=== PATIENT | female | born 1990 | race Caucasian/White ===

== ENCOUNTER → 2023-11-29 08:14 | Outpatient (REF) | payer OTHER, SELFPAY | LOC: HWRAD 08:14 | PROVIDERS: ATTENDING PHYSICIAN Chiropractor; FAMILY PHYSICIAN Family Medicine | DX: M54.2 Cervicalgia (principal); M54.6 Pain in thoracic spine | CPT/HCPCS: 72050; 72072 ==

== ENCOUNTER 2023-12-12 10:06 | Emergency (ER) | payer OTHER, SELFPAY ==
[2023-12-12 10:08] VITALS: BP 137/98
--- NOTE | 2023-12-12 10:24 | ED.GENMED ---
History of Present Illness
General
Chief Complaint: Visual Problem
Source: patient
Exam Limitations: none
Time Seen by Provider: 12/12/23 10:12
Travel History
Have you had any contact with someone who has COVID-19?: No
Do you have any symptoms of coronavirus? Fever > 100 degrees, chills, cough, shortness of breath, sore throat, loss of taste or smell, muscle aches, or headache?: No
History of Present Illness
History of Present Illness:
See MDM
If applicable-neuro sx onset
Onset of symptoms known: Yes
Date of onset of symptoms: 12/12/23
Past History
Past History
ED Past Medical History: GERD and Other (VSD)
ED Past Surgical History:
Social History
Tobacco: Former smoker
Alcohol: Occasional
Drug: None
Living: with family
Employment: Employed
Phy Exam
Physical Exam
Physical Exam:
See MDM
Scores
NIH Stroke Score
Level of Consciousness: 0 - Alert
LOC Questions: 0-Answers both correctly
LOC Commands: 0-Performs both correctly
Best Horizontal Gaze: 0-Normal
Visual Gatica: 1=Partial hemianopia
Facial Palsy: 0=Normal, symmetrical
Motor - Right Arm: 0=No drift 10 seconds
Motor - Left Arm: 0=No drift 10 seconds
Motor - Right Le-No drift 5 seconds
Motor - Left Le-No drift 5 seconds
Limb Ataxia: 0-Absent
Sensation: 0-Normal
Best Language: 0-No aphasia
Dysarthria: 0-Normal
Extinction and Inattention: 0-No abnormality
Total Score:: 1
Course
Orders/Labs/Results
Orders:
Orders
12/12/23 10:23
CT Head & Neck Angio W/wo IV Urgent
Comment:
Reason For Exam: bilateral left side visual loss
Test Result ONCE
12/12/23 10:26
Consult Neurology [NEUROLOGY CONSULT] Urgent
Consulting Provider: Jeromy Dawn
Was physician already notified: Yes
12/12/23 10:31
Electrocardiogram (*1) Urgent
Reason for Study: TIA/Stroke
EKG- Treatment ONCE
12/12/23 10:42
Prochlorperazine [Compazine] 10 mg IV NOW STA
12/12/23 10:45
Complete Blood Count/With Diff Urgent
Comprehensive Metabolic Panel Urgent
HCG, Serum Qualitative Screen Urgent
PTT Urgent
Prothrombin Time Urgent
12/12/23 10:45
12/12/23 10:45
Vital Signs
Initial and Last Documented VS:
Initial Vital Signs
Temp Pulse Resp BP Pulse Ox
99.0 F 79 16 137/98 98
12/12/23 10:08 12/12/23 10:08 12/12/23 10:08 12/12/23 10:08 12/12/23 10:08
Last Documented Vital Signs
Temp Pulse Resp BP Pulse Ox
99.0 F 83 16 122/81 99
12/12/23 10:08 12/12/23 11:40 12/12/23 11:40 12/12/23 11:40 12/12/23 11:40
MDM/Problems Addressed
Differential Diagnosis Includes:
HPI and MDM Narrative:
33-year-old female presenting with left-sided visual field loss. This occurred at approximately 9:45 AM when she was at work. Patient does have a history of ocular migraines but states this is different. Patient is starting to develop a posterior
headache. On arrival to the emergency department, patient states her symptoms are improving somewhat. She is currently being treated with a chiropractor for headaches but has not received any sort of cervical manipulation.
On arrival to the emergency department, patient does have mild bilateral left hemianopia. However, patient states the symptoms are improving
I immediately discussed the case with neurology. I am less concerned for stroke but more concern for ocular migraine or possibly MS. Regardless, will obtain CT angiogram head and neck. Neurology to see
Physical exam
General: Well appearing and non-toxic
HEENT: protecting airway. Mild bilateral visual field deficits. EOMI. Pupils equal reactive
Neck: No anterior neck tenderness. Supple
CV: No evidence of cyanosis
Resp: No accessory muscle use
Abd: Non-distended
Extremities: No deformities
Neuro: alert
Psych: Normal affect
Skin: Intact
Problems Addressed including Acute and Chronic Conditions affecting care:
1. Visual field loss
Acuity: acute
Prognosis: stable
Details: Will obtain CT angiogram. Neurology at bedside
Updates
10:35 AM neurology came down immediately and is at bedside
Blood work normal. CTA negative. Patient states all her symptoms has resolved. She feels comfortable going home. Neurology agrees. Patient will follow-up with PCP and neurology as an outpatient
Differential Diagnosis (but not limited to): CVA, migraine, brain mass, MS
Testing considered: Brain MRI
Drug therapy (if applicable): OTC meds, please see d/c instruction regarding Rx drugs
Amount and/or Complexity of Data Reviewed
Clinical info obtained from: Patient
External data reviewed: N/A
Labs I independently reviewed (but not limited to): CBC and chemistry negative
Radiology: The CT scan was personally and independently reviewed. In addition, official CT report reviewed.
Pulse Ox: not hypoxic
EKG independently reviewed: Sinus rhythm, normal axis, no STEMI
Canvas Repairer: Sinus rhythm
Critical Care: N/A
Risk of Complication:
Social Determinants of health: Good social support
Discussed with other providers: Neurologist
Escalation of Care includes Admit/Obs: After being observed in the Emergency Department, pt stable for discharge.
Occasional wrong word or 'sound a like' substitutions may have occurred due to the inherent limitations of voice recognition software. Read the chart carefully and recognize, using context, where substitutions have occurred.
*Critical Care Note
Total Time (30-74mins, 75-104mins- exclusive of procedures): Not Applicable
ED Attending Note
-
Portions of this chart may have been created with voice recognition software.� Occasional wrong word or��sound alike� substitutions may have occurred due to the inherent limitations of voice recognition software.
Discharge Plan
Departure
Patient Disposition: Home (Routine Discharge)
Date of Disposition: 12/12/23
Time of Disposition: 13:05
Patient with high blood pressure during this ER visit?: No
Discharge Problem:
Complicated migraine
Prescriptions:
No Action
PNV cmb#95-ferrous fumarate-FA [] 1 EACH tablet
1 ea PO DAILY
acetaminophen 325 MG tablet
650 mg PO Q4HPRN PRN (Reason: mild pain) 0RF
ibuprofen 600 MG tablet
600 mg PO Q6HPRN PRN (Reason: cramps) Qty: 60 0RF
simethicone [Gas Relief 80 (simethicone)] 80 MG tablet,chewable
80 mg PO TIDPRN PRN (Reason: flatulence) 0RF
Referrals:
Jeromy Dawn MD [Active] -
Cayla Smith MD [Family Provider] -
Activity Restrictions/Additional Instructions:
Please return for any worsening symptoms.
You may return at any time if you have further concerns.
Please keep your primary care appointment. Please make an appointment to see the neurologist.
Thank you for choosing [facility].
Interventions
Interventions:
*General Assessment Last Done: 12/12/23 10:50
*ED COVID-19 Vaccine History Last Done: 12/12/23 10:08
ED- Neurological Assessment Last Done: 12/12/23 10:50
ED-EENT Assessment Last Done: 12/12/23 12:44
Discharge Date and Time
Print Language: TRINIDADIAN
[2023-12-12 10:34] VITALS: BMI 34.9
--- NOTE | 2023-12-12 10:36 | CON.NEURO4 ---
Addendum entered and electronically signed by Jeromy Dawn MD 12/12/23 13:42:
Studies reviewed.
I have personally examined the patient. I reviewed and agree with the SURGICAL SUPPLY ASSISTANT's Note.
My addenda:
Awake, alert, interactive. No acute distress.
Speech intact.
Follows 2-step requests w/o difficulty. No tremor.
Extra-ocular movements grossly intact.
Facial movements full and symmetric. Hearing intact to normal conversational volume.
Normal UE movements bilaterally.
Neck: full ROM.
Chest: no dyspnea
Heart: no JVD
Ext: (-) Clubbing, (-) Cyanosis, (-) Edema
IMPRESSIONS/RECOMMENDATIONS:
Abrupt onset of Migraine with aura associated with visual change
Patient also suffers from generalized anxiety disorder which may also be producing her hand sensation change
Provide prochlorperazine for both head discomfort and nausea
Patient would likely benefit from routine dosing of amitriptyline 10 mg at bedtime as a preventative medication for migraine and episodic daily headache which she is currently experiencing. She declines this at this time
In the future, patient may benefit from the use of routine migraine rescue medication
D/W patient / nursing
Will continue to follow patient as needed.
Original Note:
Documented by User: Becky Servin NP 12/12/23 11:53
Consultation - Neurology 4
-
CONSULTING PHYSICIAN: Jeromy Dawn MD
REFERRING PHYSICIAN: ER/Dr. Acevedo
DICTATED BY: LUIS ALBERTO Cisse
DATE/TIME OF REQUEST: 12/12/23
DATE/TIME OF CONSULTATION: 12/12/23
Reason for Consultation: Vision loss
History of Present Illness:
This is a 33-year-old right-handed female who has presented to the hospital with report of abrupt loss of vision. Patient reports being in her usual state this morning when she went to work. Around 0945, she reports suddenly losing vision in
bilateral eyes on the left side. She was looking at someone's face and couldn't see the left half of it. On arrival to the ER she was noted to have a mild, rapidly improving left homonymous hemianopia, prompting Neurology evaluation. Currently,
patient reports her vision is almost back to normal but is still not quite right, she cannot describe this any further. She reports that once she arrived here she started to develop a pounding temporal headache and neck discomfort, in addition to
photophobia and nausea. She attributes the nausea to anxiety. She reports a history of migraine headaches starting in her 20's associated with photo/phonophobia, nausea, vomiting, and double vision. She has 2-3 migraines per year, typically in the
summer when it's hot outside. She has never had loss of vision with her migraines. She also endorses having 'tension headaches' associated with shoulder tension and a pounding sensation in her temples. She typically gets these headaches once a week,
but for the past 4 weeks reports that she has had a daily persistent headache. She has been taking Tylenol with minimal relief. She was evaluated at an urgent care who sent her for cervical and thoracic xrays and referred her to a chiropractor. She
has been seeing a chiropractor for two weeks and reports that it has helped some. She has not had any neck manipulation done. Additionally, she reports frequently seeing eye floaters and for the past several years she has experienced
numbness/tingling intermittently in bilateral hands and feet, neither associated with her headaches. She received prochlorperazine in the ER for nausea and headache and now reports feeling diffuse body numbness. She also reports feeling extremely
anxious. She denies any dizziness, speech/swallow difficulty, weakness, chest pain, palpitations, and shortness of breath.
Past Medical History: Migraine with aura, anxiety, GERD, VSD
Surgical History: x2, breast augmentation.
Family History: Unknown, father adopted. Both parents .
Social History: Former tobacco. Social alcohol. Denies illicit drug use.
Allergies: No known allergies.
Home Medications: See below.
Review of Symptoms:
Patient denies any fever, chest pain, shortness of breath, GI or symptoms.
�Per the HPI.�All systems are reviewed negative except above.
Physical Exam:
The patient is afebrile, abdomen is nondistended, breathing is unlabored, skin is warm and dry, no edema.
NIH Stroke Scale:
I performed the NIH stroke scale on the patient on 12/12/23 at 1045. The patient scored 0 points on the NIH stroke scale assessment, which were assigned as follows:
Neurologic Examination:
The patient is awake, alert and oriented x 3. Mild difficulty following two-step commands. There is no aphasia or dysarthria. On cranial nerve assessment, pupils are 5 mm bilateral, round and reactive to light and accommodation. No papilledema.
Visual gatica are full bilaterally. Extraocular movements are intact. Facial sensations are intact and bilaterally symmetrical, there is no facial asymmetry. Hearing is intact bilaterally to normal conversation volume. Tongue palate and uvula are
midline. Sternocleidomastoid strengths are full bilaterally. Motor strengths are 5/5 bilateral upper and lower extremities on medical research [place] scale. There is no drift or involuntary movement noted. Deep tendon reflexes are 2+ bilateral
upper and lower extremities and Babinski is absent bilaterally. Two beats on clonus on the R, 3 beats of clonus L. Sensations of touch, temperature and vibration are intact and bilaterally symmetrical. There was no extinction noted on double
simultaneous stimulation. Coordination is intact by finger to nose bilaterally.
Lab Results: See below.
Neuro Imaging:
1. CTA Head/neck 12/12/23: pending
Differentials for the patient's presentation include:
1. Migraine with aura likely producing visual field cut.
2. Demyelinating disease less likely, but possible.
3. Very low concern for stroke or vascular abnormality.
4. Anxiety.
Patient has the following risk factors for their symptoms: Age, gender, hx migraine
IV Tenecteplase/IAT candidacy: She is not a candidate for TNK/IAT due to rapidly improving symptoms, NIHSS 0, and diagnosis unlikely stroke.
Recommendations:
-Prochlorperazine 10mg IV x1 now for headache/nausea.
-Recommended initiating amitriptyline 10mg daily HS for headache prevention but patient does not want to take any medications.
-Cognitive behavioral therapy as an outpatient for anxiety
-MRI brain with and w/o contrast as an outpatient.
Discussed patient care with: Dr. Dawn, Dr. Acevedo, the patient
Vital Signs and Labs
-
Vital Signs and Labs:
Vital Signs
Temp Pulse Resp BP Pulse Ox
99.0 F 83 16 122/81 99
12/12/23 10:08 12/12/23 11:40 12/12/23 11:40 12/12/23 11:40 12/12/23 11:40
Lab Results
12/12/23 10:45
12/12/23 10:45
PT 13.4 Sec (11.4-14.6) 12/12/23 10:45
INR 1.02 12/12/23 10:45
APTT 30.6 Sec (23.4-35.0) 12/12/23 10:45
Sodium 137 mmol/L (135-145) 12/12/23 10:45
Potassium 4.3 mmol/L (3.5-5.1) 12/12/23 10:45
BUN 15 mg/dl (7-17) 12/12/23 10:45
Glucose 96 mg/dl (70-99) 12/12/23 10:45
Calcium 9.7 mg/dl (8.4-10.2) 12/12/23 10:45
Medications
-
Home Medications
�Medication �Instructions �Recorded
vit no.95-ferrous 1 ea PO DAILY 01/25/19
fumarate 28 mg-folic acid 800 mcg
tablet ()
acetaminophen 325 mg tablet 650 mg (2 x 325 mg) PO Q4HPRN PRN 12/24/19
mild pain
ibuprofen 600 mg tablet 600 mg PO Q6HPRN PRN cramps #60 12/24/19
tabs
simethicone 80 mg chewable tablet 80 mg PO TIDPRN PRN flatulence 12/24/19
(Gas Relief 80 (simethicone))
NIH Stroke Score
Subsequent NIH Scale
Date of Subsequent NIH Scale: 12/12/23
Time of Subsequent NIH Scale: 10:45
NIH Stroke Score
Level of Consciousness: 0 - Alert
LOC Questions: 0-Answers both correctly
LOC Commands: 0-Performs both correctly
Best Horizontal Gaze: 0-Normal
Visual Gatica: 0=Normal, no visual loss
Facial Palsy: 0=Normal, symmetrical
Motor - Right Arm: 0=No drift 10 seconds
Motor - Left Arm: 0=No drift 10 seconds
Motor - Right Le-No drift 5 seconds
Motor - Left Le-No drift 5 seconds
Limb Ataxia: 0-Absent
Sensation: 0-Normal
Best Language: 0-No aphasia
Dysarthria: 0-Normal
Extinction and Inattention: 0-No abnormality
Total Score:: 0

Documented by User: Jeromy Dawn MD 12/12/23 13:38
NIH Stroke Score
NIH Stroke Score
Total Score:: 0
[2023-12-12] MEDS: COMPAZINE 10 MG IV (10:48)
[2023-12-12 10:55] LABS: % Basophils 0.8 % (0-2); % Eosinophils 2.8 % (0-6); % Immature Granulocytes 0.3 % (0-0.5); % Lymphocytes 42.7 % (20.5-51.1); % Monocytes 6.8 % (1.7-9.3); % Neutrophils 46.6 % (42.2-75.2); Absolute Basophils 0.1 10^3/uL (0-0.2); Absolute Eosinophils 0.2 10^3/uL (0-0.7); Absolute Lymphocytes 3.2 10^3/uL (1.2-3.4); Absolute Monocytes 0.5 10^3/uL (0.1-0.6); Absolute Neutrophils 3.5 10^3/uL (1.4-6.5); Hematocrit 40.8 % (37.0-47.0); Hemoglobin 13.9 g/dL (12.0-16.0); Mean Corp Hgb Conc. 34.1 g/dL (33.0-37.0); Mean Corpuscular Hgb 29.8 pg (27.0-31.0); Mean Corpuscular Volume 87.6 fL (81.0-99.0); Mean Platelet Volume 9.7 fL (7.4-10.4); Nucleated Red Blood Cells % 0 %; Platelet Count 247 10^3/uL (130-400); Red Blood Cell Count 4.66 10^6/uL (4.20-5.40); Red Cell Dist. Width 12.7 % (11.5-14.5); White Blood Cell Count 7.5 10^3/uL (4.8-10.8)
[2023-12-12 11:05] LABS: HCG, Serum Qualitative Screen Negative
[2023-12-12 11:08] LABS: ALT (SGPT) 26 U/L (0-35); AST (SGOT) 22 U/L (14-36); Albumin 4.8 g/dl (3.5-5.0); Alkaline Phosphatase 73 U/L (38-126); Blood Urea Nitrogen 15 mg/dl (7-17); Calcium 9.7 mg/dl (8.4-10.2); Carbon Dioxide 23 mmol/L (22-30); Chloride 102 mmol/L (98-107); Estimated Creatinine Clearance > 125 ml/min; Glucose 96 mg/dl (70-99); Potassium 4.3 mmol/L (3.5-5.1); Sodium 137 mmol/L (135-145); Total Bilirubin 0.4 mg/dl (0.2-1.3); Total Protein 7.5 g/dl (6.3-8.2); eGFR > 60.00
[2023-12-12 11:09] LABS: INR 1.02; PT 13.4 Sec (11.4-14.6)
[2023-12-12 11:10] LABS: APTT 30.6 Sec (23.4-35.0)
[2023-12-12 11:40] VITALS: BP 122/81
[2023-12-12 13:28] VITALS: BP 133/99
== END 2023-12-12 13:52 | disposition home or self-care (01) ==
LOC: EMR 10:06
PROVIDERS: CONSULT PHYSICIAN Psychiatry & Neurology Neurology; EMERGENCY PHYSICIAN Student in an Organized Health Care Education/Training Program; FAMILY PHYSICIAN Family Medicine
DX: G43.109 Migraine with aura, not intractable, without status migrainosus (principal); Z87.891 Personal history of nicotine dependence
CPT/HCPCS: 99285; 96374; 70496; 70498; 80053; 84703; 85025; 85610; 85730; 93005; Q9967

== ENCOUNTER 2024-04-24 14:40 | Emergency (ER) | payer OTHER, SELFPAY ==
[2024-04-24 14:51] VITALS: BP 135/99
[2024-04-24 15:19] LABS: % Basophils 0.7 % (0-2); % Eosinophils 2.2 % (0-6); % Immature Granulocytes 0.4 % (0-0.5); % Monocytes 7.4 % (1.7-9.3); % Neutrophils 59.3 % (42.2-75.2); Absolute Basophils 0.1 10^3/uL (0-0.2); Absolute Eosinophils 0.2 10^3/uL (0-0.7); Absolute Lymphocytes 2.2 10^3/uL (1.2-3.4); Absolute Monocytes 0.5 10^3/uL (0.1-0.6); Absolute Neutrophils 4.3 10^3/uL (1.4-6.5); Hematocrit 39.6 % (37.0-47.0); Hemoglobin 14.1 g/dL (12.0-16.0); Mean Corp Hgb Conc. 35.6 g/dL (33.0-37.0); Mean Corpuscular Hgb 30.4 pg (27.0-31.0); Mean Corpuscular Volume 85.3 fL (81.0-99.0); Mean Platelet Volume 9.7 fL (7.4-10.4); Nucleated Red Blood Cells % 0 %; Platelet Count 265 10^3/uL (130-400); Red Blood Cell Count 4.64 10^6/uL (4.20-5.40); Red Cell Dist. Width 12.7 % (11.5-14.5); White Blood Cell Count 7.2 10^3/uL (4.8-10.8)
[2024-04-24 15:28] LABS: HCG, Serum Qualitative Screen Negative
[2024-04-24 15:32] LABS: ALT (SGPT) 21 U/L (0-35); AST (SGOT) 21 U/L (14-36); Albumin 4.7 g/dl (3.5-5.0); Alkaline Phosphatase 68 U/L (38-126); Blood Urea Nitrogen 15 mg/dl (7-17); Carbon Dioxide 24 mmol/L (22-30); Chloride 104 mmol/L (98-107); Glucose 108 mg/dl (70-99); Potassium 3.9 mmol/L (3.5-5.1); Sodium 138 mmol/L (135-145); Total Bilirubin 0.7 mg/dl (0.2-1.3); Total Protein 7.4 g/dl (6.3-8.2); eGFR > 60.00
[2024-04-24 15:41] LABS: Troponin I < 0.012 ng/ml
[2024-04-24 15:59] LABS: TSH Reflex To Free T4 1.59 uIU/ml (0.47-4.68)
[2024-04-24 16:16] VITALS: BMI 31.3
[2024-04-24 16:17] VITALS: BP 127/82
--- NOTE | 2024-04-24 16:24 | ED.GENMED ---
History of Present Illness
General
Chief Complaint: Heart Rate Problem
Source: patient
Time Seen by Provider: 04/24/24 16:05
History of Present Illness
History of Present Illness:
33-year-old female with past medical history of previous ventricular septal defect (no longer monitored by cardiology as patient stated she did not need to follow with them anymore), anxiety and frequent headaches presenting to the emergency
department for evaluation after she noticed her heart rate elevated intermittently over the last 24 hours, watch told her last night she was in atrial fibrillation, but states that her heart rate has gone back down into the 80s but still feeling the
palpitations. Patient states she also felt a slight discomfort in the left part of her chest as well but denies this currently. She denies any fevers or recent illnesses, cough, lower extremity edema, nausea or vomiting or any other concerns.
Past History
Past History
ED Past Medical History: GERD and Other (VSD)
ED Past Surgical History:
Social History
Tobacco: Former smoker
Alcohol: Occasional
Drug: None
Personal:
Living: with family
Employment: Employed
Review of Systems
Review of Systems
All Other Systems: ROS reviewed and negative except as documented in HPI and ROS
Phy Exam
Physical Exam
Physical Exam:
GENERAL: Alert , in no apparent distress, somewhat anxious
EYE: conjunctiva clear
NECK: Supple
ENT: o/p clr, mmm.
CARDIAC: Regular rate and rhythm
LUNGS: Clear breath sounds bilaterally, no acute respiratory distress, no wheezes/rales/rhonchi
NEUROLOGICAL: Alert and oriented
SKIN: Warm and dry, skin intact.
MUSCULOSKELETAL: well perfused. No edema
PSYCH: Normal and appropriate interaction.
Scores
Heart Failure Risk
Heart Failure Risk Score: Not Applicable
Heart Score for Chest Pain Patients
STEMI patient?: Not applicable
Withdrawal Assessment of Alcohol
Withdrawal Assessment Completed?: Not applicable
Course
Orders/Labs/Results
Orders:
Orders
04/24/24 14:46
EKG [Electrocardiogram (*1)] Urgent
Reason for Study: Chest Pain
EKG- Treatment ONCE
04/24/24 14:55
Test Result ONCE
04/24/24 15:04
Complete Blood Count/With Diff Urgent
Comprehensive Metabolic Panel Urgent
, Serum Qualitative Screen [HCG, Serum Qualitative Screen] Urgent
TSH Reflex To Free T4 Urgent
Troponin I Urgent
Abnormal Lab Results
04/24/24
15:04
Glucose 108 H mg/dl
(70-99)
04/24/24 15:04
04/24/24 15:04
Vital Signs
Initial and Last Documented VS:
Initial Vital Signs
Temp Pulse Resp BP Pulse Ox
98.7 F 93 18 135/99 97
04/24/24 14:51 04/24/24 14:51 04/24/24 14:51 04/24/24 14:51 04/24/24 14:51
Last Documented Vital Signs
Temp Pulse Resp BP Pulse Ox
98.7 F 93 18 127/82 99
04/24/24 14:51 04/24/24 14:51 04/24/24 14:51 04/24/24 16:17 04/24/24 16:18
MDM/Problems Addressed
Differential Diagnosis Includes:
Cardiac dysrhythmia, I do not have concern for ACS, anxiety, electrolyte disturbance,
MDM/Problems Addressed:
33-year-old female presenting to the ER for evaluation after experiencing palpitations and having her watch tell her she was in atrial fibrillation. EKG here shows patient is in a sinus arrhythmia. I reviewed the rhythm strip from last night when
her watch told her she was in A-fib and this still appears to be more of a sinus arrhythmia and less likely to be atrial fibrillation. Labs have been initiated in triage and are also unremarkable for any acute pathologies. Thyroid studies normal.
If patient was going in and out of paroxysmal atrial fibrillation her [id number] score would only be 1 and would be an unlikely candidate for anticoagulation. She has seen [facility] cardiology in the past for her VSD and it is certainly
reasonable for her to follow-up as an outpatient with them. Discussed return precautions to the ER with patient. She is otherwise stable for discharge home.
*Pulse Oximetry
Patient hypoxic: no
*EKG
Interpreted by ED Provider?: Yes
Comparison EKG: no changes
Heart Rate: 94
Rate: normal
Rhythm: sinus arrhythmia
Ischemia: no ischemia
*Critical Care Note
Total Time (30-74mins, 75-104mins- exclusive of procedures): Not Applicable
Data Reviewed
Review of Other/Old Records Reveals: Labs and Records
Source: patient
ED Attending Note
-
Portions of this chart may have been created with voice recognition software.� Occasional wrong word or��sound alike� substitutions may have occurred due to the inherent limitations of voice recognition software.
Discharge Plan
Departure
Patient Disposition: Home (Routine Discharge)
Date of Disposition: 04/24/24
Time of Disposition: 16:24
Patient with high blood pressure during this ER visit?: No
Discharge Problem:
Palpitations
Instructions: Palpitations (DC)
Prescriptions:
No Action
PNV cmb#95-ferrous fumarate-FA [] 1 EACH tablet
1 ea PO DAILY
acetaminophen 325 MG tablet
650 mg PO Q4HPRN PRN (Reason: mild pain) 0RF
ibuprofen 600 MG tablet
600 mg PO Q6HPRN PRN (Reason: cramps) Qty: 60 0RF
simethicone [Gas Relief 80 (simethicone)] 80 MG tablet,chewable
80 mg PO TIDPRN PRN (Reason: flatulence) 0RF
Interventions
Interventions:
*Risk Screen - Suicide Last Done: 04/24/24 14:53
*General Assessment Last Done: 04/24/24 16:21
*Neglect/Abuse Screening Last Done: 04/24/24 14:53
ED- Fall Risk Assessment Last Done: 04/24/24 16:18
*ED COVID-19 Vaccine History Last Done: 04/24/24 16:23
*Nursing Disposition Last Done: 04/24/24 16:35
ED- Cardiac Assessment Last Done: 04/24/24 16:18
ED- Pulmonary Assessment Last Done: 04/24/24 16:18
Discharge Date and Time
Discharge Date/Time: 04/24/24 16:35
Print Language: OCCITAN
== END 2024-04-24 16:35 | disposition home or self-care (01) ==
LOC: EMR 14:40
PROVIDERS: EMERGENCY PHYSICIAN Student in an Organized Health Care Education/Training Program
DX: R00.2 Palpitations (principal); I48.91 Unspecified atrial fibrillation; K21.9 Gastro-esophageal reflux disease without esophagitis; Z87.74 Personal history of (corrected) congenital malformations of heart and circulatory system; Z87.891 Personal history of nicotine dependence
CPT/HCPCS: 99283; 80053; 84443; 84484; 84703; 85025; 93005

== ENCOUNTER 2024-06-08 16:46 | Emergency (ER) | payer OTHER, SELFPAY ==
[2024-06-08 16:48] VITALS: BP 143/94
--- NOTE | 2024-06-08 17:37 | ED.GENMED ---
History of Present Illness
General
Chief Complaint: Abdominal Pain
Source: patient
Exam Limitations: none
Time Seen by Provider: 06/08/24 17:14
History of Present Illness
History of Present Illness:
33-year-old female presents complaining of persistent left lower abdominal pain over the past 8 days. Was initially preceded by loose runny stools. This has stopped. She was found to have diverticulitis by the family doctor and has been on
Augmentin for the past 4 days. She denies a fever. The pain has not improved. The pain does not radiate to the back no associated urinary symptoms. Last menstrual cycle 2 weeks ago. No other complaints at this time
Past History
Past History
ED Past Medical History: GERD and Other (VSD)
ED Past Surgical History:
Social History
Tobacco: Former smoker
Alcohol: Occasional
Drug: None
Personal:
Living: with family
Employment: Employed
Phy Exam
Physical Exam
Physical Exam:
General: Well-appearing female no acute respiratory distress
HEENT: Normocephalic atraumatic
Heart: Regular rate and rhythm no murmurs
Lungs: Clear no wheeze or rales
Abdomen soft tender to the left lower quadrant no guarding rebound normal bowel sounds nondistended
Extremities: No cyanosis
Course
Orders/Labs/Results
Orders:
Orders
06/08/24 17:30
Test Result ONCE
06/08/24 17:31
CT Abd/pelvis W Iv Cont Urgent
Comment:
Reason For Exam: LLQ pain
06/08/24 17:40
Comprehensive Metabolic Panel Urgent
HCG, Serum Qualitative Screen Urgent
06/08/24 17:41
Complete Blood Count/With Diff Urgent
06/08/24 18:14
Urinalysis Reflex To Culture Urgent
Date Specimen was Collected: 06/08/24
Time Specimen was Collected: 18:08
06/08/24 17:41
06/08/24 17:40
Vital Signs
Initial and Last Documented VS:
Initial Vital Signs
Temp Pulse Resp BP Pulse Ox
98.0 F 63 18 143/94 98
06/08/24 16:48 06/08/24 16:48 06/08/24 16:48 06/08/24 16:48 06/08/24 16:48
Last Documented Vital Signs
Temp Pulse Resp BP Pulse Ox
98.0 F 63 18 143/94 98
06/08/24 16:48 06/08/24 16:48 06/08/24 16:48 06/08/24 16:48 06/08/24 16:48
MDM/Problems Addressed
Differential Diagnosis Includes:
Persistent left-sided abdominal pain. Consider constipation versus viral illness versus diverticulitis or ovarian cyst.
Will check urine and labs. CT pending.
*Critical Care Note
Total Time (30-74mins, 75-104mins- exclusive of procedures): Not Applicable
Update Note
Update Note:
CT abdomen negative for acute finding. Labs reviewed without finding urinalysis negative. I suspect patient may have had an underlying viral illness that still healing. Recommended bland diet and lots of clear liquids. No indication for
admission stable for discharge
ED Attending Note
-
Portions of this chart may have been created with voice recognition software.� Occasional wrong word or��sound alike� substitutions may have occurred due to the inherent limitations of voice recognition software.
Discharge Plan
Departure
Patient Disposition: Home (Routine Discharge)
Date of Disposition: 06/08/24
Time of Disposition: 19:57
Patient with high blood pressure during this ER visit?: No
Discharge Problem:
Abdominal pain
Instructions: Abdominal Pain
Prescriptions:
No Action
PNV cmb#95-ferrous fumarate-FA [] 1 EACH tablet
1 ea PO DAILY
acetaminophen 325 MG tablet
650 mg PO Q4HPRN PRN (Reason: mild pain) 0RF
ibuprofen 600 MG tablet
600 mg PO Q6HPRN PRN (Reason: cramps) Qty: 60 0RF
simethicone [Gas Relief 80 (simethicone)] 80 MG tablet,chewable
80 mg PO TIDPRN PRN (Reason: flatulence) 0RF
Referrals:
Cayla Smith MD [Family Provider] -
Activity Restrictions/Additional Instructions:
Continue with Tylenol or ibuprofen for pain. Eat a bland diet. Return here if worse otherwise consider following up with GI if symptoms persist
Interventions
Interventions:
*Risk Screen - Suicide Last Done: 06/08/24 16:50
*General Assessment Last Done: 06/08/24 16:50
*Neglect/Abuse Screening Last Done: 06/08/24 16:50
ED- Fall Risk Assessment Last Done: 06/08/24 18:02
*ED COVID-19 Vaccine History Last Done: 06/08/24 16:50
HJ-Tunbif-Qlssprtqux Assessment Last Done: 06/08/24 18:02
Discharge Date and Time
Print Language: BELARUSIAN
[2024-06-08 17:49] LABS: % Basophils 0.5 % (0-2); % Eosinophils 3.2 % (0-6); % Immature Granulocytes 0.3 % (0-0.5); % Lymphocytes 34.7 % (20.5-51.1); % Monocytes 7.3 % (1.7-9.3); Absolute Eosinophils 0.2 10^3/uL (0-0.7); Absolute Lymphocytes 2.6 10^3/uL (1.2-3.4); Absolute Monocytes 0.5 10^3/uL (0.1-0.6); Hemoglobin 12.9 g/dL (12.0-16.0); Mean Corp Hgb Conc. 34.9 g/dL (33.0-37.0); Mean Corpuscular Hgb 29.8 pg (27.0-31.0); Mean Corpuscular Volume 85.5 fL (81.0-99.0); Mean Platelet Volume 9.6 fL (7.4-10.4); Nucleated Red Blood Cells % 0 %; Platelet Count 270 10^3/uL (130-400); Red Blood Cell Count 4.33 10^6/uL (4.20-5.40); Red Cell Dist. Width 12.4 % (11.5-14.5); White Blood Cell Count 7.4 10^3/uL (4.8-10.8)
[2024-06-08 17:58] LABS: HCG, Serum Qualitative Screen Negative
[2024-06-08 18:05] LABS: ALT (SGPT) 20 U/L (0-35); AST (SGOT) 20 U/L (14-36); Albumin 4.4 g/dl (3.5-5.0); Alkaline Phosphatase 68 U/L (38-126); Blood Urea Nitrogen 13 mg/dl (7-17); Calcium 9.6 mg/dl (8.4-10.2); Carbon Dioxide 22 mmol/L (22-30); Chloride 102 mmol/L (98-107); Glucose 94 mg/dl (70-99); Potassium 4.2 mmol/L (3.5-5.1); Sodium 138 mmol/L (135-145); Total Bilirubin 0.7 mg/dl (0.2-1.3); Total Protein 6.7 g/dl (6.3-8.2); eGFR > 60.00
[2024-06-08 18:21] LABS: Urine Albumin Negative (Neg - Trace); Urine Bilirubin Negative (Negative); Urine Character Clear (Clear); Urine Color Yellow; Urine Glucose Negative (Negative); Urine Ketone Negative (Negative); Urine Leukocyte Negative (Negative); Urine Nitrite Negative (Negative); Urine Occult Blood Negative (Negative); Urine Urobilinogen Negative (Neg - 1+); Urine pH 6.5 (5.0-9.0)
== END 2024-06-08 20:27 | disposition home or self-care (01) ==
LOC: EMR 16:46
PROVIDERS: Physician Assistant; EMERGENCY PHYSICIAN Emergency Medicine; FAMILY PHYSICIAN Family Medicine
DX: R10.32 Left lower quadrant pain (principal); R19.7 Diarrhea, unspecified; K57.92 Diverticulitis of intestine, part unspecified, without perforation or abscess without bleeding; K21.9 Gastro-esophageal reflux disease without esophagitis; Q21.0 Ventricular septal defect; Z87.891 Personal history of nicotine dependence
CPT/HCPCS: 99284; 74177; 80053; 81003; 84703; 85025; Q9967